=== PATIENT | male | born 1940 | race Caucasian/White ===

== ENCOUNTER 2016-11-25 15:49 | Emergency (ER) | payer MEDICARE ==
[2016-11-25 15:52] VITALS: BP 142/75
--- NOTE | 2016-11-25 17:23 | ED ---
Laceration/Wound HPI - HPI Summary HPI Summary: 76M presents with left ring finger laceration. He was outside working and the weed frances hit his finger and caused a laceration. He is on coumadin so he could not get bleeding under control. His last INR was two week ago and was low. His next INR is in a week. He denies any numbness or tingling. He has full ROM of his finger. - History of Current Complaint Stated Complaint: LT HAND CUT FINGER Time Seen by Provider: 11/25/16 16:54 Pain Intensity: 2 - Allergy/Home Medications Allergies/Adverse Reactions: Allergies Allergy/AdvReac Type Severity Reaction Status Date / Time SCALLOPS Allergy Intermediate Nausea And Uncoded 02/10/16 08:00 Vomiting PMH/Surg Hx/FS Hx/Imm Hx Endocrine/Hematology History: Reports: Hx Anticoagulant Therapy Denies: Hx Diabetes Cardiovascular History: Reports: Hx Valvular Heart Disease - MITRAL,AORTIC VALVE DISODER, Other Cardiovascular Problems/Disorders - AFIB Denies: Hx Congestive Heart Failure, Hx Hypertension Respiratory History: Reports: Hx Sleep Apnea Denies: Hx Asthma GI History: Reports: Hx Gastroesophageal Reflux Disease - ON MEDICATION History: Reports: Other Problems/Disorders - PROSTATE REMOVED Musculoskeletal History: Reports: Hx Arthritis - JOINTS Sensory History: Reports: Hx Cataracts - PENDING, Hx Contacts or Glasses - READING GLASSES, Hx Hearing Aid - DOESN'T WEAR Opthamlomology History: Reports: Hx Cataracts - PENDING, Hx Contacts or Glasses - READING GLASSES - Cancer History Cancer Type, Location and Year: melanoma - Surgical History Surgery Procedure, Year, and Place: APPENDECTOMY [facility] [place]. LEFT THUMB [facility] 1991. RIGHT SHOULER SURGERY 2000 [facility]. PROSTATE SURGERY 2009. melanoma removal Hx Anesthesia Reactions: No Infectious Disease History: No Infectious Disease History: Denies: Traveled Outside the [place] in Last 30 Days - Family History Known Family History: Positive: Cardiac Disease - Social History Alcohol Use: Daily Alcohol Amount: 1/D Substance Use Type: Reports: None Smoking Status (MU): Former Smoker Type: Cigarettes Have You Smoked in the Last Year: No Review of Systems Negative: Fever Negative: Chest Pain Negative: Shortness Of Breath Positive: Other - laceration finger All Other Systems Reviewed And Are Negative: Yes Physical Exam Triage Information Reviewed: Yes Vital Signs On Initial Exam: Initial Vitals Temp Pulse Resp BP Pulse Ox 97.2 F 76 20 142/75 96 11/25/16 15:50 11/25/16 15:50 11/25/16 15:50 11/25/16 15:50 11/25/16 15:50 Vital Signs Reviewed: Yes Appearance: Positive: Well-Appearing Skin: Positive: Warm, Dry, Other - laceration 1/2cm of left ring finger near end of nail Head/Face: Positive: Normal Head/Face Inspection Eyes: Positive: Normal, Conjunctiva Clear Respiratory/Lung Sounds: Positive: Clear to Auscultation, Breath Sounds Present Cardiovascular: Positive: Normal, RRR Musculoskeletal: Positive: Strength/ROM Intact - of hand, Other - good pulses, capillary refill<2 secs Neurological: Positive: Normal Psychiatric: Positive: Normal Procedures - Laceration/Wound Repair 1 Location: Other - left ring finger Description: Irregular Length, Depth and Shape: 1/2cm superficial Irrigated w/ Saline (ccs): 500 Laceration/Wound Explored: clean, no foreign body removed Closure: Skin Adhesive, SteriStrips Diagnostics - Vital Signs Vital Signs Temp Pulse Resp BP Pulse Ox 11/25/16 16:27 97.2 F 76 20 142/75 96 11/25/16 15:50 97.2 F 76 20 142/75 96 - Laboratory Lab Statement: Any lab studies that have been ordered have been reviewed, and results considered in the medical decision making process. Laceration Repair Course/Dx - Course Course Of Treatment: 76M presents with left ring finger laceration. He was outside working and the weed frances hit his finger and caused a laceration. He is on coumadin so he could not get bleeding under control. His last INR was two week ago and was low. His next INR is in a week. He denies any numbness or tingling. He has full ROM of his finger. on exam has small laceration that is bleeding. soaked area and bleeding stopped. applied glue and pressure dressing and bleeding is controlled. patient requested a metal finger splint which gave. patient understands and agrees with plan. - Differential Dx Differental Diagnoses: Abrasion, Avulsion, Laceration - Clinical Impression Provider Diagnoses: Laceration of left ring finger Discharge - Discharge Plan Condition: Good Disposition: HOME Patient Education Materials: Skin Adhesive Care (ED) Referrals: Colby Liu MD [Primary Care Provider] - Additional Instructions: Take Tylenol for pain as needed every 6 hours Glue and steristrips will fall off on own Avoid scrubbing area Return to ED if develop any signs of infection or any new or worsening symptoms
== END 2016-11-25 17:27 | disposition home or self-care (01) ==
LOC: ED 15:49
DX: S61.215A Laceration without foreign body of left ring finger without damage to nail, initial encounter (principal); W27.1XXA Contact with garden tool, initial encounter; Y93.H2 Activity, gardening and landscaping; Y92.9 Unspecified place or not applicable; I35.8 Other nonrheumatic aortic valve disorders; Z79.01 Long term (current) use of anticoagulants; K21.9 Gastro-esophageal reflux disease without esophagitis; M19.90 Unspecified osteoarthritis, unspecified site; Z87.891 Personal history of nicotine dependence
CPT/HCPCS: 12001; 99282

== ENCOUNTER → 2018-09-18 17:40 | Emergency (ER) | payer MEDICARE ==
--- NOTE | 2018-09-18 18:42 | ED ---
Head Injury - History Of Current Complaint Chief Complaint: EDHeadInjury Stated Complaint: FALL, HEAD INJURY PER PT Time Seen by Provider: 09/18/18 17:55 Pain Intensity: 1 - Allergies/Home Medications Allergies/Adverse Reactions: Allergies Allergy/AdvReac Type Severity Reaction Status Date / Time latex Allergy Rash Verified 09/18/18 17:46 SCALLOPS Allergy Intermediate Nausea And Uncoded 02/10/16 08:00 Vomiting PMH/Surg Hx/FS Hx/Imm Hx Endocrine/Hematology History: Reports: Hx Anticoagulant Therapy - coumadin Denies: Hx Diabetes Cardiovascular History: Reports: Hx Valvular Heart Disease - MITRAL,AORTIC VALVE DISODER, Other Cardiovascular Problems/Disorders - AFIB Denies: Hx Congestive Heart Failure, Hx Hypertension Respiratory History: Reports: Hx Sleep Apnea Denies: Hx Asthma GI History: Reports: Hx Gastroesophageal Reflux Disease - ON MEDICATION History: Reports: Other Problems/Disorders - PROSTATE REMOVED Musculoskeletal History: Reports: Hx Arthritis - JOINTS Sensory History: Reports: Hx Cataracts - PENDING, Hx Contacts or Glasses - READING GLASSES, Hx Hearing Aid - DOESN'T WEAR Opthamlomology History: Reports: Hx Cataracts - PENDING, Hx Contacts or Glasses - READING GLASSES - Cancer History Cancer Type, Location and Year: melanoma - Surgical History Surgery Procedure, Year, and Place: APPENDECTOMY [facility] [place]. LEFT THUMB [facility] 1991. RIGHT SHOULER SURGERY 2000 [facility]. PROSTATE SURGERY 2009. melanoma removal Hx Anesthesia Reactions: No Infectious Disease History: No Infectious Disease History: Denies: Traveled Outside the [place] in Last 30 Days - Family History Known Family History: Positive: Cardiac Disease - Social History Alcohol Use: Daily Alcohol Amount: 1/D Substance Use Type: Reports: None Smoking Status (MU): Former Smoker Type: Cigarettes Have You Smoked in the Last Year: No Physical Exam Vital Signs On Initial Exam: Initial Vitals Temp Pulse Resp BP Pulse Ox 98.7 F 97 16 151/92 98 09/18/18 17:42 09/18/18 17:42 09/18/18 17:42 09/18/18 17:42 09/18/18 17:42 Diagnostics - Vital Signs Vital Signs Temp Pulse Resp BP Pulse Ox 09/18/18 18:20 84 171/83 98 09/18/18 18:00 77 97 09/18/18 17:50 90 155/90 98 09/18/18 17:42 98.7 F 97 16 151/92 98 - Laboratory Lab Statement: Any lab studies that have been ordered have been reviewed, and results considered in the medical decision making process. Head Injury Course/Dx - Diagnoses Provider Diagnoses: Fall, Head injury, Laceration Discharge - Sign-Out/Discharge Documenting (check all that apply): Patient Departure Patient Received Moderate/Deep Sedation with Procedure: No - Discharge Plan Condition: Stable Disposition: HOME Patient Education Materials: Head Injury (ED), Staple Care (ED), Laceration (ED ) Referrals: Colby Liu MD [Primary Care Provider] - Additional Instructions: [place] out in 10 days. May wash with warm running water and soap starting tomorrow. Do not submerge underwater for a few days. Return to the ED for any new or worsening symptoms. - Billing Disposition and Condition Condition: STABLE Disposition: Home
[2018-09-18 18:45] VITALS: BP 188/92
== END | disposition home or self-care (01) ==
LOC: ED 17:40
DX: S09.90XA Unspecified injury of head, initial encounter (principal); S01.91XA Laceration without foreign body of unspecified part of head, initial encounter; W19.XXXA Unspecified fall, initial encounter; I05.9 Rheumatic mitral valve disease, unspecified; Z79.01 Long term (current) use of anticoagulants; Z87.891 Personal history of nicotine dependence
CPT/HCPCS: 70450; 99282

== ENCOUNTER 2019-04-22 11:58 | Emergency (ER) | payer MEDICARE ==
--- NOTE | 2019-04-22 12:28 | ED ---
Abdominal Pain/Male - HPI Summary HPI Summary: This patient is a 78 year old male presenting to [facility] with a chief complaint of right-sided abdominal pain and distention. Pt states this morning had some "middle" abdominal pain. Pt states he went to complete some errands and his pain increased and the right side of his abdomen gradually started getting larger and became painful. He is on Coumadin for afib. Pt denies nausea. States pain worse with movement. Pt with mild lightheadedness. He rates his pain 8/10 in severity. He describes the pain as a steady deep pain. He states the pain becomes more severe when he moves. He states the pain becomes very sharp when he moves. He denies fever, chills, nausea, vomiting. Denies cp, sob. Patient' s medications as entered in EMR reviewed this visit. Pt without history of kidney problems . last labs 2018 - History of Current Complaint Chief Complaint: EDAbdPain Stated Complaint: ABD PAIN PER PT Time Seen by Provider: 04/22/19 12:22 Hx Obtained From: Patient, Medical Records - labs, CT - pt has had omnipaque previously Onset/Duration: Lasting Minutes Pain Intensity: 8 Pain Scale Used: 0-10 Numeric Location: Discrete At: RUQ, Discrete At: RLQ - Allergies/Home Medications Allergies/Adverse Reactions: Allergies Allergy/AdvReac Type Severity Reaction Status Date / Time scallops AdvReac Intermediate Nausea And Verified 04/22/19 14:57 Vomiting PMH/Surg Hx/FS Hx/Imm Hx Endocrine/Hematology History: Reports: Hx Anticoagulant Therapy - coumadin Denies: Hx Diabetes Cardiovascular History: Reports: Hx Valvular Heart Disease - MITRAL,AORTIC VALVE DISODER, Other Cardiovascular Problems/Disorders - AFIB Denies: Hx Congestive Heart Failure, Hx Hypertension Respiratory History: Reports: Hx Sleep Apnea Denies: Hx Asthma GI History: Reports: Hx Gastroesophageal Reflux Disease - ON MEDICATION History: Reports: Other Problems/Disorders - PROSTATE REMOVED Musculoskeletal History: Reports: Hx Arthritis - JOINTS Sensory History: Reports: Hx Cataracts - PENDING, Hx Contacts or Glasses - READING GLASSES, Hx Hearing Aid - DOESN'T WEAR Denies: Hx Deafness Opthamlomology History: Reports: Hx Cataracts - PENDING, Hx Contacts or Glasses - READING GLASSES Neurological History: Denies: Hx Developmental Delay Psychiatric History: Denies: Hx Autism - Cancer History Cancer Type, Location and Year: melanoma - Surgical History Surgery Procedure, Year, and Place: APPENDECTOMY [facility]. LEFT THUMB [facility] 1991. RIGHT SHOULER SURGERY 2000 [facility]. PROSTATE SURGERY 2009. melanoma removal Hx Anesthesia Reactions: No Infectious Disease History: No Infectious Disease History: Denies: Traveled Outside the [place] in Last 30 Days - Family History Known Family History: Positive: Cardiac Disease - Social History Occupation: Retired Lives: With Family Alcohol Use: Daily Alcohol Amount: 1/D Substance Use Type: Reports: None Smoking Status (MU): Former Smoker Type: Cigarettes Have You Smoked in the Last Year: No Review of Systems Negative: Fever, Chills Positive: Abdominal Pain - Distension. Negative: Vomiting, Nausea All Other Systems Reviewed And Are Negative: Yes Physical Exam - Summary Physical Exam Summary: Vital Signs Reviewed: Yes A+Ox3, discomfort with movement Eyes: Conjunctiva Clear, MARRY. EOM intact and full ENT: Hearing grossly normal TM x 2 clear, mmoist, uvula midline, no exudate, no erythema Neck: Positive: Supple Respiratory: Positive: No respiratory distress, No accessory muscle use + CTA throughout no w/r Cardiovascular: RRR nl s1, s2 no m/r CBT <2 sec bilateral posterior tibial pulses equal abd soft + diffuse abdominal pain - increased TTP Right upper and lower abd, no skin color change Musculoskeletal Exam: NEGRON x 4 without difficulty Strength Intact, ROM Intact Neurological: Positive: Alert, + sensation throughout Psychological: Positive: Normal Response To examiner Skin: Positive: no rash, no ecchymosis Triage Information Reviewed: Yes Vital Signs On Initial Exam: Initial Vitals Temp Pulse Resp BP Pulse Ox 97.9 F 88 19 148/87 98 04/22/19 12:10 04/22/19 12:10 04/22/19 12:10 04/22/19 12:10 04/22/19 12:10 Vital Signs Reviewed: Yes Procedures - Sedation Patient Received Moderate/Deep Sedation with Procedure: No Diagnostics - Vital Signs Vital Signs Temp Pulse Resp BP Pulse Ox 04/22/19 12:10 97.9 F 88 19 148/87 98 - Laboratory Result Diagrams: 04/22/19 12:37 04/22/19 12:37 Lab Statement: Any lab studies that have been ordered have been reviewed, and results considered in the medical decision making process. - CT C/A/P CT Interpretation Completed By: Radiologist Summary of CT Findings: 1. 13 CM INTRAMUSCULAR HEMATOMA OF THE ANTERIOR ABDOMINAL WALL. 2. ATHEROSCLEROSIS. 3. MILD CARDIOMEGALY. 4. NO AORTIC ANEURYSMAL DILATATION OR INTIMAL FLAP TO SUGGEST DISSECTION. Dr. Estrada has reviewed this radiology report. Re-Evaluation - Re-Evaluation First Eval Re-Evaluation Time: 13:06 Comment: Discussed CT results with patient. Patient agrees to be transferred for higher level of care. Patient also agrees to have plasma transfusion. reviewed with pharmacy - will give Kcentra. Pt given morphine for pain. close reassessment, npo Second Eval Re-Evaluation Time: 14:38 Comment: Updated patient on plan for transfer, patient reports his pain is manageable. Awaiting call from [facility] - No aeroflight today - would go by ground Third Eval Re-Evaluation Time: 14:51 Comment: spoke with Dr. Moore - interventional radiology at [place]. At this time , would not likely perform and intervention but does recommend close monitoring with serial hct. Awaiting call from hospitalist at [facility] Fourth Eval Re-Evaluation Time: 14:53 Comment: Discussed patient case with Dr. Toussaint, hospitalist at [facility]. Dr. Toussaint from [facility] accepted patient for transfer. Fifth Eval Re-Evaluation Time: 15:37 Comment: bed assignment received from [facility]. pt updated - understanding plan Abdominal Pain Male Course/Dx - Course Course Of Treatment: Patient is a 78 showed gentleman with a history of A. fib for which he is on Coumadin. Patient with sudden increased discomfort on the right side of his abdomen since this morning. Patient states he noticed some swelling on the surface of his abdomen. Patient states he had a little bit of lightheadedness. No nausea vomiting. No shortness of breath or chest pain. On exam vital signs reviewed. Patient does have edema and pain in the right rectal sheath area. No discoloration of skin surface. Patient does have good distal pulses. Concern for aortic bleeding given that he is on Coumadin. Patient sent emergently to CT A wave labs. Discussed with patient and were comfortable with the plan. We'll give IV fluids and analgesia. Patient was also given 2 large bore IVs. We'll give morphine for pain and close monitoring. Patient's vital signs currently are stable. Patient has had IV contrast previously when I look at old reports. - Diagnoses Provider Diagnoses: Abdominal wall hematoma - Provider Notifications Discussed Care Of Patient With: Wesley May - Radiologist Time Discussed With Above Provider: 13:22 Instructed by Provider To: Other - Discussed patient's CTA with Dr. May, radiologist, who thinks the patient's bleeding is not from the femoral artery but from some gastric source with active arterial extravasation. At 1410 discussed patient case with Dr. Tate, hospitalist, who agreed with transfer. At 1439 discussed patient case with Dr. Moore, IR at [facility], who recommended admission to the hospital services at [facility]. At 1453, discussed patient case with Dr. Patricia Toussaint, hospitalist of [facility], who accepted the patient for transfer. - Critical Care Time Critical Care Time: 30-74 min - 35 minutes Discharge ED - Sign-Out/Discharge Documenting (check all that apply): Patient Departure - Transfer - Discharge Plan Condition: Good Disposition: TRANS HIGHER LVL OF CARE FAC Referrals: Miles Matos MD [Primary Care Provider] - - Billing Disposition and Condition Condition: GOOD Disposition: Trans Higher Lvl of Care Fac - Attestation Statements Document Initiated by Scribe: Yes Documenting Scribe: Alexys Gomez Provider For Whom Brunilda is Documenting (Include Credential): Estela Estrada MD Scribe Attestation: Alexys Weinberg, scribed for Estela Estrada MD on 04/22/19 at 1537. Scribe Documentation Reviewed: Yes Provider Attestation: The documentation as recorded by the lakeishaibmisty, Alexys Gomez accurately reflects the service I personally performed and the decisions made by me, Estela Estrada MD Status of Scribe Document: Viewed
[2019-04-22] MEDS ORDERED: NS 0.9% 1000 ML** 1,000 ML IV ONE (12:35)
[2019-04-22] MEDS ORDERED: Iodixanol* (CONTRAST) 320 MG/ML 100 ML SDV IV ONE (12:50)
[2019-04-22 12:53] LABS: ABS Lymphocytes 0.5 10^3/ul (1.0-4.8); ABS Monocytes 0.7 10^3/ul (0-0.8); ABS Neutrophils 11.5 10^3/ul (1.5-7.7); Eosinophil % 0.1 %; Hematocrit 36 % (42-52); Hemoglobin 12.1 g/dL (14.0-18.0); Lymphocyte % 3.8 %; Mean Corpuscular HGB Conc 34 g/dL (31-36); Mean Corpuscular Hemoglobin 28 pg (27-31); Mean Corpuscular Volume 83 fL (80-94); Mean Platelet Volume 7.6 fL (7.4-10.4); Platelet Count 235 10^3/uL (150-450); Red Blood Count 4.34 10^6 /uL (4.18-5.48); Red Cell Distribution Width 14 % (10-15); White Blood Count 12.7 10^3/uL (3.5-10.8)
[2019-04-22] MEDS ORDERED: Morphine 4 MG/ML VIAL (1 ml) 4 MG/ML VIAL IV ONE ×3 (12:58→16:20)
[2019-04-22 13:00] LABS: INR 2.98 (0.82-1.09)
[2019-04-22 13:08] LABS: Albumin 3.9 g/dL (3.2-5.2); Albumin/Globulin Ratio 1.6 (1-3); BUN/Creatinine Ratio 20.8 (8-20); Calcium 8.6 mg/dL (8.6-10.3); EGFR African American 57.7 (>60); EGFR Non-African American 47.7 (>60); Globulin 2.5 g/dL (2-4); Magnesium 1.7 mg/dL (1.9-2.7); Potassium 4.5 mmol/L (3.5-5.0); Total Bilirubin 0.6 mg/dL (0.2-1.0); Total Protein 6.4 g/dL (6.4-8.9)
[2019-04-22] MEDS ORDERED: NS 0.9% 1000 ML** 1,000 ML IV SCH (15:00)
[2019-04-22 15:42] VITALS: BP 178/94
== END 2019-04-22 16:32 | disposition short-term general hospital (02) ==
LOC: ED 11:58
DX: S30.1XXA Contusion of abdominal wall, initial encounter (principal); X58.XXXA Exposure to other specified factors, initial encounter; Y92.9 Unspecified place or not applicable; I48.91 Unspecified atrial fibrillation; K21.9 Gastro-esophageal reflux disease without esophagitis; Z87.891 Personal history of nicotine dependence; Z90.89 Acquired absence of other organs; Z79.01 Long term (current) use of anticoagulants
CPT/HCPCS: 36415; 71275; 74174; 80053; 83605; 83735; 85025; 85610; 85730; 86850; 86900; 86901; 93005; 96361; 96374; 96375; 96376; 99285; C9132; J2270; Q9967